=== PATIENT | female | born 1940 | race Caucasian/White ===

== ENCOUNTER 2023-03-18 23:44 | Inpatient (IN) | payer MEDICARE, BC ==
[2023-03-19 00:51] LABS: #Basophils 0.1 thou/uL (0.0-0.2); #Eosinphils 0.3 thou/uL (0.0-0.7); #Monocytes 1.4 thou/uL (0.11-0.59); #Neutrophils 6.1 thou/uL (1.40-6.50); %Basophils 0.8 % (0.0-1.0); %Eosinophils 2.9 % (0.0-10.0); %Lymphocytes 19.7 % (21.0-51.0); %Monocytes 14.1 % (0.0-10.0); %Neutrophils 61.8 % (42.0-75.0); Hemoglobin 11.3 g/dL (12.0-16.0); Mean Corpuscular HGB CONC 33.1 g/dL (32.0-36.0); Mean Corpuscular Hemoglobin 31.8 pg (27.0-31.0); Mean Corpuscular Volume 96.1 fl (78.0-98.0); Platelet Count 293 10x3/uL (130-400); RBC Distribution Width 14.1 % (11.5-14.5); Red Blood Cell (RBC) Count 3.55 mill/uL (4.20-5.40); White Blood Cell (WBC) Count 9.8 10x3/uL (4.8-10.8)
[2023-03-19 01:12] LABS: Anion Gap 12 mmol/L (10-20); BUN (Urea Nitrogen) 23 mg/dL (9.8-20.1); Calc. Creatinine Clearance 0 mL/min (70-130); Calcium 9.3 mg/dL (7.8-10.44); Carbon Dioxide 26 mmol/L (23-31); Chloride 104 mmol/L (98-107); Estimated GFR 51; Glucose 95 mg/dL (83-110); Potassium 3.8 mmol/L (3.5-5.1); Sodium 138 mmol/L (136-145)
[2023-03-19] MEDS ORDERED: Calcium Carbonate 500 MG ChewTAB PO PRN (01:47)
[2023-03-19] MEDS ORDERED: Ondansetron ODT 4 MG TAB PO PRN (01:47)
[2023-03-19] MEDS ORDERED: Ondansetron PF 4 MG/2 ML Vial IVP PRN (01:47)
[2023-03-19] MEDS ORDERED: Senokot S 8.6-50 MG TAB PO PRN (01:47)
[2023-03-19 07:31] LABS: Anion Gap 12 mmol/L (10-20); BUN (Urea Nitrogen) 19 mg/dL (9.8-20.1); Calc. Creatinine Clearance 42 mL/min (70-130); Calcium 9.1 mg/dL (7.8-10.44); Carbon Dioxide 26 mmol/L (23-31); Chloride 107 mmol/L (98-107); Estimated GFR 63; Glucose 84 mg/dL (83-110); Sodium 141 mmol/L (136-145)
[2023-03-19] MEDS: Famotidine 20 MG TAB PO SCH ×2 (09:42→20:40)
[2023-03-19] MEDS: Acetaminophen 325 MG TAB PO PRN (20:40)
[2023-03-20] MEDS: Famotidine 20 MG TAB PO SCH ×2 (10:28→20:36)
[2023-03-20] MEDS: Acetaminophen 325 MG TAB PO PRN (10:28)
[2023-03-20] MEDS ORDERED: Ketorolac Tromethamine 30 MG/ML VIAL IVP PRN (15:40)
[2023-03-21 07:09] LABS: #Basophils 0.1 thou/uL (0.0-0.2); #Eosinphils 0.3 thou/uL (0.0-0.7); #Monocytes 0.6 thou/uL (0.11-0.59); #Neutrophils 2.7 thou/uL (1.40-6.50); %Basophils 1.6 % (0.0-1.0); %Eosinophils 5.5 % (0.0-10.0); %Lymphocytes 28.2 % (21.0-51.0); %Monocytes 12.2 % (0.0-10.0); %Neutrophils 52.1 % (42.0-75.0); Hemoglobin 11.6 g/dL (12.0-16.0); Mean Corpuscular HGB CONC 32.2 g/dL (32.0-36.0); Mean Corpuscular Volume 96.3 fl (78.0-98.0); Mean Platelet Volume 9.8 fL (7.4-10.4); Platelet Count 349 10x3/uL (130-400); RBC Distribution Width 13.9 % (11.5-14.5); Red Blood Cell (RBC) Count 3.74 mill/uL (4.20-5.40); White Blood Cell (WBC) Count 5.1 10x3/uL (4.8-10.8)
[2023-03-21 08:04] VITALS: BP 138/72; TEMP 98
[2023-03-21] MEDS: Famotidine 20 MG TAB PO SCH (08:35)
[2023-03-21 14:20] LABS: Bacteria/HPF 3+ HPF (None Seen); Bilirubin Negative (Negative); Blood, Urine Negative (Negative); CAUTI Indications for Culture Dysuria,urgency,freq; Clarity Clear (Clear); Glucose, Urine (Dipstick) Normal (Negative); Ketone, Urine Negative (Negative); Leukocyte 25 Leu/uL (Negative); Nitrite Negative (Negative); Protein, Urine (Dipstick) Negative (Neg-Trace); RBC/HPF 0-3 HPF (0-3); Specific Gravity, Urine 1.006 (1.002-1.036); Squamous Epithelial None Seen HPF (0-3); Urobilinogen Normal mg/dL (Less than 2); WBC/HPF 0-3 HPF (0-3)
[2023-03-21 14:22] LABS: Urine Culture Reflex No No
== END 2023-03-21 17:00 | disposition home or self-care (01) | DRG 558 ==
LOC: ERS 23:44 → T4-B 03-19 01:28
PROVIDERS: ADMIT Student in an Organized Health Care Education/Training Program; ATTEND Hospitalist
DX: M71.21 Synovial cyst of popliteal space [Baker], right knee (principal); S80.11XA Contusion of right lower leg, initial encounter; Z79.899 Other long term (current) drug therapy; Z91.09 Other allergy status, other than to drugs and biological substances; W18.30XA Fall on same level, unspecified, initial encounter; I10 Essential (primary) hypertension; Z87.891 Personal history of nicotine dependence
CPT/HCPCS: 36415; 80048; 81001; 82565; 85025; 99284; J1885; Q9967